=== PATIENT | male | born 2000 | race Caucasian/White ===

== ENCOUNTER 2023-03-24 11:54 | Emergency (ER) | payer SELFPAY ==
[~2023-03-24] VITALS: Ht 152 cm; Wt 50.0 kg
[~2023-03-24 11:54] MED LIST: ADVIL200 MG PO; AMOXICILLIN 50500 MG PO; BIAXIN 500MG T500 MG PO; CIPRO 500MG TA500 MG PO; FLAGYL500 MG PO; NORCO 325 MG-51 TAB PO; PRIL40 PO; PROTONIX20 MG PO; ZOFRAN ODT4 MG PO
[2023-03-24 12:11] VITALS: TEMP 98.2
[2023-03-24] MEDS ORDERED: oxyCODONE 5 MG TAB PO ONE (12:30)
[2023-03-24] MEDS ORDERED: LR 1,000 ML IV ONE (12:45)
[2023-03-24] MEDS ORDERED: Morphine 4 MG/ML VIAL IV ONE (12:45)
[2023-03-24 13:15] LABS: COLLECTION METHOD CLEAN CATCH
[2023-03-24 13:20] LABS: BASO % 0.4 % (0.0-2.0); EOS # 0.1 K/mm3 (0.0-0.7); EOS % 2.4 % (0.0-4.0); GRAN # 3.5 K/mm3 (1.4-6.5); GRAN % 64.8 % (42.2-75.2); HEMATOCRIT 42.8 % (42.0-52.0); HEMOGLOBIN 14.7 g/dl (13.5-18.0); LYMPH # 1.3 K/mm3 (1.2-3.4); LYMPH % 24.5 % (20.0-51.0); MEAN CELL VOLUME 88 fl (80.0-100.0); MEAN CORPUSCULAR HEMOGLOBIN 30 pg (27-31); MEAN CORPUSCULAR HGB CONC 34 g/dl (33.0-37.0); MEAN PLATELET VOLUME 9.3 fl (7.4-10.4); MONO # 0.4 K/mm3 (0.1-0.6); MONO % 7.7 % (1.7-9.3); PLATELET COUNT 278 K/mm3 (130-400); RED BLOOD COUNT 4.86 M/mm3 (4.20-5.60); REDCELL DISTRIBUTION WIDTH-CV 12.6 % (11.5-14.5)
[2023-03-24 13:31] LABS: PH 6.5 (5.0-8.5); URINE APPEARANCE CLEAR (CLEAR/HAZY); URINE BLOOD NEGATIVE (NEGATIVE); URINE COLOR YELLOW (YELLOW); URINE GLUCOSE NEGATIVE (NEGATIVE); URINE KETONE NEGATIVE (NEGATIVE); URINE NITRATE NEGATIVE (NEGATIVE); URINE PROTEIN(semi-quant) NEGATIVE (NEGATIVE); URINE UROBILINOGEN 0.2 E.U/dL (0.2-1.0)
[2023-03-24 13:41] LABS: ALBUMIN 4.3 gm/dL (3.5-5.0); BILIRUBIN,TOTAL 0.5 mg/dL (0.2-1.2); CALCIUM 9.8 mg/dL (8.4-10.2); CREATININE, serum 0.77 mg/dL (0.72-1.25); POTASSIUM 3.5 mmol/L (3.5-4.5); TOTAL PROTEIN 7.6 gm/dL (6.2-8.1)
[2023-03-24] MEDS ORDERED: predniSONE 20 MG TAB PO ONE (14:30)
[2023-03-24] MEDS ORDERED: Famotidine 20 MG TAB PO ONE (14:30)
[2023-03-24] MEDS ORDERED: diphenhydrAMINE 25 MG CAP PO ONE (14:30)
[2023-03-24] MEDS ORDERED: diphenhydrAMINE 50 MG/ML 1 ML VIAL IV ONE (15:00)
[2023-03-24] MEDS ORDERED: PREDNISONE20 MG PO (16:10)
[2023-03-24] MEDS ORDERED: ROXICODONE 55 MG/TAB PO (16:10)
[2023-03-24 16:45] VITALS: BP 130/85; PULSE 60
== END 2023-03-24 16:45 | disposition home or self-care (01) ==
LOC: COL.ER 11:54
PROVIDERS: Emergency Medicine
DX: T78.3XXA Angioneurotic edema, initial encounter (principal); K85.90 Acute pancreatitis without necrosis or infection, unspecified; Z60.3 Acculturation difficulty
CPT/HCPCS: J1200; J2270; J7120; J7512

== ENCOUNTER 2023-06-24 14:20 | Emergency (ER) | payer SELFPAY ==
[~2023-06-24] VITALS: Ht 151 cm; Wt 55.0 kg
[~2023-06-24 14:20] MED LIST changes: +ATARAX 25MG25 MG/TAB PO; +PREDNISONE20 MG PO; +ROXICODONE 55 MG/TAB PO
[2023-06-24 14:31] VITALS: TEMP 98.6
[2023-06-24] MEDS ORDERED: Morphine 4 MG/ML VIAL IV ONE (15:00)
[2023-06-24] MEDS ORDERED: NS 1,000 ML IV ONE (15:00)
[2023-06-24 15:08] LABS: BASO % 0.5 % (0.0-2.0); EOS # 0.2 K/mm3 (0.0-0.7); EOS % 2.4 % (0.0-4.0); GRAN # 4.7 K/mm3 (1.4-6.5); GRAN % 62.9 % (42.2-75.2); HEMATOCRIT 44.6 % (42.0-52.0); HEMOGLOBIN 15.1 g/dl (13.5-18.0); LYMPH # 1.9 K/mm3 (1.2-3.4); LYMPH % 25.1 % (20.0-51.0); MEAN CELL VOLUME 89 fl (80.0-100.0); MEAN CORPUSCULAR HEMOGLOBIN 30 pg (27-31); MEAN CORPUSCULAR HGB CONC 34 g/dl (33.0-37.0); MEAN PLATELET VOLUME 9.5 fl (7.4-10.4); MONO # 0.7 K/mm3 (0.1-0.6); MONO % 8.8 % (1.7-9.3); PLATELET COUNT 327 K/mm3 (130-400); REDCELL DISTRIBUTION WIDTH-CV 12.7 % (11.5-14.5)
[2023-06-24 15:41] LABS: ALBUMIN 4.1 g/dL (3.5-5.0); BILIRUBIN,TOTAL 0.5 mg/dL (0.2-1.2); C-REACTIVE PROTEIN 0.58 mg/dL (0.00-0.50); CALCIUM 9.9 mg/dL (8.4-10.2); CREATININE, serum 0.8 mg/dL (0.72-1.25); POTASSIUM 3.4 mEq/L (3.5-4.5); TOTAL PROTEIN 7.9 g/dl (6.2-8.1)
[2023-06-24] MEDS ORDERED: PHENERGAN 25 TA25 MG PO (17:29)
[2023-06-24 17:48] VITALS: BP 146/88; PULSE 60
== END 2023-06-24 17:46 | disposition home or self-care (01) ==
LOC: COL.ER 14:20
PROVIDERS: Nurse Practitioner
DX: K85.90 Acute pancreatitis without necrosis or infection, unspecified (principal)
CPT/HCPCS: J0780; J2270; J7030

== ENCOUNTER 2023-10-14 15:56 | Inpatient (IN) | payer SELFPAY ==
[~2023-10-14 15:56] MED LIST changes: +PHENERGAN 25 TA25 MG PO
[2023-10-14] MEDS ORDERED: Morphine 4 MG/ML VIAL IV ONE (16:15)
[2023-10-14 16:29] LABS: BASO % 0.3 % (0.0-2.0); EOS # 0.2 K/mm3 (0.0-0.7); EOS % 1.8 % (0.0-4.0); GRAN # 7.1 K/mm3 (1.4-6.5); GRAN % 64.2 % (42.2-75.2); HEMATOCRIT 47.8 % (42.0-52.0); HEMOGLOBIN 16.5 g/dl (13.5-18.0); LYMPH # 2.9 K/mm3 (1.2-3.4); LYMPH % 26.2 % (20.0-51.0); MEAN CELL VOLUME 88 fl (80.0-100.0); MEAN CORPUSCULAR HEMOGLOBIN 30 pg (27-31); MEAN CORPUSCULAR HGB CONC 35 g/dl (33.0-37.0); MEAN PLATELET VOLUME 9.1 fl (7.4-10.4); MONO # 0.8 K/mm3 (0.1-0.6); MONO % 7.1 % (1.7-9.3); PLATELET COUNT 360 K/mm3 (130-400); RED BLOOD COUNT 5.45 M/mm3 (4.20-5.60)
[2023-10-14] MEDS ORDERED: Ondansetron 4 MG/2 ML VIAL IV ONE (16:30)
[2023-10-14] MEDS ORDERED: NS 1,000 ML IV ONE ×2 (16:30→17:30)
[2023-10-14] MEDS ORDERED: Iohexol 300 - 100 ML VIAL IV ONE (16:49)
[2023-10-14] MEDS ORDERED: NS 100 ML IV ONE (16:50)
[2023-10-14 16:59] LABS: ALANINE AMINOTRANSFERASE 52 U/L (0-55); ALBUMIN 4.4 g/dL (3.5-5.0); ALKALINE PHOSPHATASE 101 U/L (40-150); ANION GAP 12 mmol/L (7-16); AST,SGOT 39 U/L (5-34); BILIRUBIN,TOTAL 0.5 mg/dL (0.2-1.2); BLOOD UREA NITROGEN 14 mg/dL (9-21); CHLORIDE 105 mEq/L (98-107); CREATININE, serum 0.84 mg/dL (0.72-1.25); GLUCOSE 105 mg/dL (70-99); LIPASE 1016 U/L (8-78); MAGNESIUM 2.3 mg/dL (1.6-2.6); POTASSIUM 3.7 mEq/L (3.5-4.5); SODIUM 140 mEq/L (136-145); TOTAL PROTEIN 8.2 g/dl (6.2-8.1)
[2023-10-14 17:07] LABS: TROPONIN-I < 0.010 ng/mL (0.00-0.033)
[2023-10-14] MEDS ORDERED: HYDROmorphone 0.5 MG/0.5 ML SYRINGE IV ONE (17:15)
[2023-10-14] MEDS ORDERED: Ondansetron 4 MG/2 ML VIAL IV PRN (18:00)
[2023-10-14] MEDS ORDERED: NS 1,000 ML IV SCH (18:00)
[2023-10-14] MEDS ORDERED: HYDROmorphone 0.5 MG/0.5 ML SYRINGE IV PRN (18:00)
--- NOTE | 2023-10-14 18:26 | NUR ---
REPORT RECEIVED FROM ED NURSE
--- NOTE | 2023-10-14 18:33 | NUR ---
REPORT GIVEN TO KATLYN BAUMAN
[2023-10-14 19:11] LABS: PHOSPHOROUS 3.3 mg/dL (2.3-4.7)
[2023-10-14 19:12] LABS: ALCOHOL(ethanol),MEDICAL < 10 mg/dL (0-10)
[2023-10-14 19:36] VITALS: BP 106/69; PULSE 68; TEMP 98.6
--- NOTE | 2023-10-14 20:17 | NUR ---
THE PATIENT ARRIVED VIA WC ACCOMPANIED BY ED STAFF. THE PATIENT WAS ALERT AND ORIENTED. VITAL SIGNS STABLE. AN POT PUNCHER WAS USED THE PATIENT IS HEBRE[place] SPEAKING ONLY.
[2023-10-14] MEDS ORDERED: PEPTO-BISMOL U525 MG PO (20:25)
[2023-10-14 20:42] VITALS: BP_SYST 102
[2023-10-14 20:50] LABS: CHOLESTEROL 229 mg/dL (0-199)
[2023-10-14 21:08] LABS: COLLECTION METHOD CLEAN CATCH
[2023-10-14 21:12] LABS: PH 6.5 (5.0-8.5); URINE APPEARANCE CLEAR (CLEAR/HAZY); URINE BLOOD NEGATIVE (NEGATIVE); URINE COLOR YELLOW (YELLOW); URINE GLUCOSE NEGATIVE (NEGATIVE); URINE KETONE NEGATIVE (NEGATIVE); URINE NITRATE NEGATIVE (NEGATIVE); URINE PROTEIN(semi-quant) NEGATIVE (NEGATIVE); URINE UROBILINOGEN 0.2 E.U/dL (0.2-1.0)
[2023-10-14 21:25] LABS: TRICYCLIC ANTIDEPRESS URINE NEGATIVE (NEGATIVE)
[2023-10-14 23:20] VITALS: BP 102/63; PULSE 65; TEMP 97.5
[2023-10-15] VITALS (11 sets, daily range): BP systolic 102–119; BP diastolic 55–72; PULSE 48–65; TEMP 97.4–98.7
--- NOTE | 2023-10-15 07:30 | NUR ---
Patient resting in bed, alert and oriented x 4, states pain is 1/10. Did not sleep well and trying to sleep a little more. Getting fluids 150mls/hr. Assessment completed. Pt would like to go home today. No other needs at this time. Call light within reach.
--- NOTE | 2023-10-15 07:36 | NUR ---
THE PATIENT RESTED WELL MOST OF THE NIGHT. DILAUDID GIVEN TWICE FOR ABD PAIN 07/23. THE PATIENT REPORTED PAIN REDUCTION WITH THE INTERVENTION 02/22. AN SMALL BUSINESS DIRECTOR WAS USED WHEN NEEDED FOR COMMUNICATION SINCE THE PATIENT IS [place] SPEAKING ONLY. BLOOD GLUCOSE WNL OVER NIGHT.
--- NOTE | 2023-10-15 09:26 | NUR ---
Patient called stating his pain is back. 07/23. Dilaudid provided.
--- NOTE | 2023-10-15 10:01 | NUR ---
SW met with patient with KATLYN Huerta to translate. Patient verified that he lives in [place]. He lists a friend Braulio Ugalde as his contact. Patient does not have Ramsey's phone number at this time but will provide it. Patient does not have a PCP and is uninsured. He uses [facility] when needed. Patient is employed with a [employer]. He denies drinking alcohol since being diagnosed with pancreatitis. He was provided with PCP list and encouraged to contact [facility] for follow up. Financial counselor was notified by email to see patient for FAA. Discharge plan: Home
[2023-10-15] MEDS ORDERED: Docusate Sodium 100 MG CAP PO PRN (21:00)
--- NOTE | 2023-10-15 21:30 | NUR ---
Patient assessed around 2100. Used tissue recovery technician [email or web address] ID #[id number]. Alert and oriented, and able to make needs known. Reports pain is at a 2, denied wanting pain medication. Denies nausea and voming. Periperal IV to right wrist with IV fluids running per orders. Denies SOB and dyspnea. LS CTA. HRR. BSAx4. Reports feeling constipated. Last BM 10/14/23 in the morning. Requesting something to help. Call placed to [facility]. New order for Colace received, and given per orders. No edema. Patient voices no further questions, needs, or concerns at this time. In bed with call light within reach.
[2023-10-16 00:26] VITALS: BP_SYST 113
[2023-10-16 03:45] VITALS: BP 99/55; PULSE 60; TEMP 98
[2023-10-16 04:11] VITALS: BP_SYST 99
--- NOTE | 2023-10-16 06:24 | NUR ---
Patient has voiced no complaints of pain or discomfort this shift. Continues on IV fluids per orders. In bed with call light within reach.
[2023-10-16 07:55] VITALS: BP 97/58; PULSE 70; TEMP 98.3
[2023-10-16 09:25] VITALS: BP_SYST 97
--- NOTE | 2023-10-16 11:15 | NUR ---
slurry worker was notified by Dr Lorenzo that patient will discharge today to their home. No further needs or concerns.
== END 2023-10-16 11:15 | disposition home or self-care (01) | DRG 440 ==
LOC: COL.ER 15:56 → MEDICAL 18:01
PROVIDERS: Emergency Medicine; Nurse Practitioner Family; ADMIT Internal Medicine
DX: K85.90 Acute pancreatitis without necrosis or infection, unspecified (principal); I45.10 Unspecified right bundle-branch block; K59.09 Other constipation; Z87.19 Personal history of other diseases of the digestive system; Z88.6 Allergy status to analgesic agent
CPT/HCPCS: J1170; J1650; J2270; J2405; J7030; Q9967